=== PATIENT | male | born 1975 | race Caucasian/White ===

== ENCOUNTER 2018-05-30 02:18 | Outpatient (CLI) | payer MEDICAID, SELFPAY ==
[2018-05-30 08:09] LABS: Hemoglobin A1C 5.7 % (4.5-6.2)
[2018-05-30 08:28] LABS: ALT 16 U/L (12-78); AST 12 U/L (15-37); Albumin 3.9 g/dL (3.4-5.0); Alkaline Phosphatase 43 U/L (46-116); Anion Gap 9.5 mmol/L (3-11); BUN 10 mg/dL (7-18); Bilirubin, Total 0.2 mg/dL (0.2-1.0); CO2 26.5 mmol/L (21.0-32.0); CREATININE 1.19 mg/dL (0.70-1.30); Calcium 9.3 mg/dL (8.5-10.1); Chloride 104 mmol/L (98-107); Cholesterol 186 mg/dL (50-200); Glucose 109 mg/dL (70-100); HDL Cholesterol 32 mg/dL (40-60); LDL CHOLESTEROL 132 mg/dL (<100); Potassium 4.5 mmol/L (3.5-5.1); Sodium 140 mmol/L (136-145); Total Protein 6.8 g/dL (6.4-8.2); Triglyceride 153 mg/dL (30-150)
[2018-06-02 10:46] LABS: Hepatitis C Ab w Rflx HCV PCR Negative (NEGAT)
== END 2018-05-30 02:38 ==
PROVIDERS: PCP Nurse Practitioner Family; Visit Provider Nurse Practitioner Family
DX: Z87.898 Personal history of other specified conditions (principal); Z13.1 Encounter for screening for diabetes mellitus; E78.5 Hyperlipidemia, unspecified; R73.01 Impaired fasting glucose; Z11.59 Encounter for screening for other viral diseases
CPT/HCPCS: 36415; 80053; 80061; 83721; 86803; 83036

== ENCOUNTER 2018-09-26 00:27 | Outpatient (CLI) | payer MEDICAID, SELFPAY ==
--- NOTE | 2018-09-26 08:12 | DI.RAD_ITS ---
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 There are prominent hypertrophic degenerative changes of the acromioclavicular joint. Glenohumeral articulation appears intact. No additional bony or soft tissue abnormality is seen. RIGHT SHOULDER: Five views were obtained. There are moderate hypertrophic degenerative changes of the acromioclavicular joint. No abnormality of the glenohumeral articulation. No additional significant bony or soft tissue findings. LEFT HAND: Three views were obtained. No bony or soft tissue abnormality is seen.
== END 2018-09-26 00:47 ==
PROVIDERS: PCP Nurse Practitioner Family; Visit Provider Nurse Practitioner Family
DX: M25.512 Pain in left shoulder (principal); M25.511 Pain in right shoulder; M19.012 Primary osteoarthritis, left shoulder; M19.011 Primary osteoarthritis, right shoulder; M60.242 Foreign body granuloma of soft tissue, not elsewhere classified, left hand
CPT/HCPCS: 73030; 73130

== ENCOUNTER 2019-06-19 01:47 | Outpatient (CLI) | payer MEDICAID, SELFPAY ==
[2019-06-19 08:39] LABS: ALT 17 U/L (16-63); AST 14 U/L (15-37); Albumin 3.9 g/dL (3.4-5.0); Alkaline Phosphatase 41 U/L (46-116); Anion Gap 7.2 mmol/L (3-11); BUN 10 mg/dL (7-18); Bilirubin, Total 0.3 mg/dL (0.2-1.0); CO2 29.8 mmol/L (21.0-32.0); CREATININE 1.15 mg/dL (0.70-1.30); Calculated LDL 112 mg/dL; Chloride 105 mmol/L (98-107); Cholesterol 178 mg/dL (50-200); Glucose 101 mg/dL (70-100); HDL Cholesterol 28 mg/dL (40-60); Sodium 142 mmol/L (136-145); Total Protein 6.7 g/dL (6.4-8.2); Triglyceride 193 mg/dL (30-150)
== END 2019-06-19 02:07 ==
PROVIDERS: PCP Nurse Practitioner Family; Visit Provider Nurse Practitioner Family
DX: E78.5 Hyperlipidemia, unspecified (principal); R73.01 Impaired fasting glucose
CPT/HCPCS: 36415; 80053; 80061; 83036

== ENCOUNTER 2019-10-23 09:33 | Outpatient (REF) | payer MEDICAID, SELFPAY ==
[2019-10-23 13:21] LABS: Folate 11.9 ng/mL (8.6-20.0); TSH (W/Ref FT4) 2.12 uIU/mL (0.36-3.74); Vitamin B12 356 pg/mL (193-986)
== END 2019-10-23 09:53 ==
LOC: NCHCN 09:33
PROVIDERS: PCP Nurse Practitioner Family; Visit Provider Nurse Practitioner Family
DX: R41.3 Other amnesia (principal)
CPT/HCPCS: 82607; 82746; 84443

== ENCOUNTER 2019-11-03 13:12 | Outpatient (CLI) | payer MEDICAID, SELFPAY ==
--- NOTE | 2019-11-03 13:39 | DI.RAD_ITS ---
EXAM: XR THUMB LT EXAM DATE/TIME: CLINICAL HISTORY: LT THUMB PAIN, M79.645, FELL DOWN STAIRS, LIMITED RANGE OF MOTION. TECHNIQUE: 2D digital imaging was performed. COMPARISON: None. FINDINGS: BONES: No acute fracture is present. No bony destructive lesion is seen. 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 JOINTS: No dislocation present. SOFT TISSUE: Normal. IMPRESSION: No evidence of acute fracture, dislocation, or subluxation. DATA REPOSITORY: RADIATION DOSE DELIVERED:
== END 2019-11-03 13:32 ==
PROVIDERS: PCP Nurse Practitioner Family; Visit Provider Nurse Practitioner Family
DX: M79.645 Pain in left finger(s) (principal)
CPT/HCPCS: 73140

== ENCOUNTER 2019-12-16 11:56 | Outpatient (CLI) | payer MEDICAID, SELFPAY ==
--- NOTE | 2019-12-16 09:00 | DI.RAD_ITS ---
EXAM: XR THUMB LT CLINICAL HISTORY: pain TECHNIQUE: COMPARISON: CR XR THUMB LT from 11/03/2019 FINDINGS: Single AP view of the thumb which appears to be a stress view, there is ulnar subluxation of the prox imal phalanx 1st metacarpal and widening of radial aspect of the 1st metacarpal proximal phalangeal j oint. Findings are consistent with ligamentous laxity or tear. Please correlate clinically. IMPRESSION:
== END 2019-12-16 12:16 ==
PROVIDERS: PCP Nurse Practitioner Family; Visit Provider Orthopaedic Surgery
DX: S63.602A Unspecified sprain of left thumb, initial encounter (principal); S63.112A Subluxation of metacarpophalangeal joint of left thumb, initial encounter
CPT/HCPCS: 73140

== ENCOUNTER 2019-12-24 21:23 | Outpatient (REF) | payer MEDICAID, SELFPAY ==
[2019-12-24 16:20] LABS: Abs Immature Grans 0.02 k/cumm (0.0-0.09); Absolute Basophil Count 0.05 k/cumm (0.0-0.2); Absolute Eosinophil Count 0.31 k/cumm (0.0-0.7); Absolute Lymphocyte Count 2.56 k/cumm (1.2-3.4); Absolute Monocyte Count 0.65 k/cumm (0.11-0.7); Absolute Neutrophil Count 4.54 k/cumm (1.2-6.7); Basophils % 0.6; Eosinophils % 3.8; HCT 42.2 % (40.0-50.0); HGB 14.5 g/dL (13.5-17.5); Immature Grans % 0.2 %; Lymphocytes % 31.5; Mean Corp. HGB Concentration 34.4 g/dL (32.0-36.0); Mean Corpuscular Hemoglobin 28.7 pg (27.0-33.0); Mean Corpuscular Volume 83.4 fL (80-95); Mean Platelet Volume 10.3 fL (8.0-11.0); Neutrophils % 55.9; Platelet Count 318 x1000/uL (130-400); RBC 5.06 m/cumm (4.50-6.00); White Blood Cell Count 8.13 k/cumm (4.4-10.8)
[2019-12-24 16:55] LABS: Vitamin D 25 Total 14.8 ng/ml (30-100)
[2019-12-25 11:02] LABS: Syphilis Serology (RPR) Negative (Negative)
== END 2019-12-24 21:43 ==
LOC: NCHCN 21:23
PROVIDERS: PCP Nurse Practitioner Family; Visit Provider Nurse Practitioner Psychiatric/Mental Health
DX: R41.3 Other amnesia (principal)
CPT/HCPCS: 82306; 85025; 86592

== ENCOUNTER 2020-05-20 08:20 | Outpatient (CLI) | payer MEDICAID, SELFPAY ==
[2020-05-21 14:57] LABS: COVID-19 RT-PCR Result NEGATIVE (Negative)
== END 2020-05-20 08:40 ==
PROVIDERS: PCP Nurse Practitioner Family; Visit Provider Otolaryngology Otolaryngology/Facial Plastic Surgery
DX: Z11.59 Encounter for screening for other viral diseases (principal); Z01.818 Encounter for other preprocedural examination
CPT/HCPCS: U0003

== ENCOUNTER 2020-05-23 07:11 | Day surgery (SDC) | payer MEDICAID, SELFPAY ==
[2020-05-23 07:20] VITALS: BP 126/68; PULSE 53; RESP 18; TEMP 36.7; O2SAT 93
[2020-05-23] MEDS: Lactated Ringers 1,000 ML 80 ML IV ×2 (07:38→09:24)
--- NOTE | 2020-05-23 08:28 | W.PM.DSUDISC ---
Discharge Plan Disposition Patient Disposition: HOME Condition: Good Discharge Details Reason For Visit: or Attending Provider: Evaristo Kiran Primary Care Provider: Jann Jackman Home Meds and New Rx's Prescriptions: No Action triamcinolone acetonide 0.5 % cream 1 applic TP .BID-QID Qty: 15 RF: 3 clonazepam 0.5 mg tablet 0.5 mg PO PRN RF: 0 ibuprofen 200 MG capsule 4 tab PO TID PRNRF: 0 albuterol sulfate [ProAir HFA] 8.5 GM HFA aerosol inhaler 1 - 2 puff Inhalation Q6H PRN Qty: 1 RF: 3 gabapentin 300 MG capsule 300 mg PO HS RF: 0 mirtazapine 30 MG tablet 30 mg PO HS RF: 0 budesonide-formoterol [Symbicort] 10.2 GM HFA aerosol inhaler 2 puff Inhalation BID Qty: 3 RF: 3 lidocaine [LC-5] 45 GM cream 1 film Topical 2-4 times daily PRN Qty: 1 RF: 3 hydroxyzine HCl 25 mg Tablet 25 mg PO QHS PRNRF: 0 Discharge Instructions Additional Instructions: see sheet Activity:: Activity as Tolerated Diet:: As Tolerated
--- NOTE | 2020-05-23 08:30 | W.PM.OP ---
Operative Note Operative Note DATE OF PROCEDURE: 05/23/20 PRE-OP DIAGNOSIS: Right tonsillar neoplasm, chronic tobacco usage POST-OP DIAGNOSIS: same PROCEDURE: Right tonsil mass excision SURGEON: Evaristo Kiran ANESTHESIA: GETA ESTIMATED BLOOD LOSS: 0.5 PATHOLOGY: other (R tonsil mass ) COMPLICATIONS: None Patient was transported to: PACU Patient's condition: stable Indications: Chronic smoker, persistent right tonsil mass, due to anxiety and gag reflex opted to proceed with excision intraoperatively. Patient was given options preoperatively, has deferred bilateral tonsillectomy, would prefer just to have the lesion itself out if we can preserve even the right tonsil. He is anxious today, preoperatively at the hospital does have a mild anxiety attack, anesthesia is controlling. Procedure Description: Patient was brought back to the operating suite in stable condition placed supine on the operating table. Intubated in normal fashion. The oral McIvor retractor was placed in the oral cavity suspended from Callahan stand. Red rubber catheter was used to elevate the soft palate. Obvious right tonsillar lesion identified.Chana Aiden retractor was placed in the lower cavity suspended from Callahan stand. Right superior tonsillar mass was grasped with a DeBakey forceps, removed with suction cautery, controlled hemostasis. Gastric contents suctioned, patient stable to PACU, no complications
[2020-05-23] MEDS: Oxymetazolone 0.05% SPRAY 15 ML BTL (09:00)
--- NOTE | 2020-05-23 09:10 | TONSIL_PTH ---
PATIENT: Keegan Hale LOC: [facility] U#:[id number] AGE/SX: 45/M ROOM: RE05/23/[address]: Evaristo Kiran DO : 1975 BED: DIS: 05/23/2020 SPEC #: [id number] RECD: 05/23/20 12:46 STATUS: MICH REQ #: [id number] AMARILIS: 05/23/20 09:[address]: Evaristo Kiran DEPT: Surgical Specimen RECD BY: Patrica Molina ENTERED: 05/23/20 12:47 SP TYPE: TONSIL OTHR DR: Jann Jackman Tissues: 1 - TONSIL BIOPSY Procedures: GROSS AND MICRO LEVEL 4 IMMUNOPEROXIDASE STAIN Comments: [id number]
[2020-05-23 09:17] VITALS: BP 140/74; PULSE 67; RESP 15; TEMP 36.5; O2SAT 93
[2020-05-23 09:22] VITALS: BP 139/78; PULSE 77; RESP 13; TEMP 36.5; O2SAT 95
[2020-05-23 09:27] VITALS: BP 145/87; PULSE 64; RESP 15; TEMP 36.6; O2SAT 96
[2020-05-23 10:15] VITALS: BP 120/75; PULSE 54; RESP 18; TEMP 36.7; O2SAT 96
== END 2020-05-23 10:30 | disposition home or self-care (01) ==
PROVIDERS: PCP Nurse Practitioner Family; Visit Provider Otolaryngology Otolaryngology/Facial Plastic Surgery
PROC: (CPT 42826; principal; 2020-05-23 08:45)
DX: J35.1 Hypertrophy of tonsils (principal)
CPT/HCPCS: 42826; 88305; 88361; J1100; J2250; J2405; J2704

== ENCOUNTER 2020-06-27 12:29 | Outpatient (REF) | payer MEDICAID, SELFPAY ==
[2020-06-27 20:28] LABS: HCT 43.6 % (40.0-50.0); HGB 14.6 g/dL (13.5-17.5); MCH 27.7 pg (27.0-33.0); MCHC 33.5 % (32.0-36.0); MCV 82.6 fL (80-95); MPV 10.6 fL (8.0-11.0); Platelet Count 311 10^3/uL (130-400); RBC 5.28 10^6/uL (4.36-5.78); RDW 12.2 % (11.8-14.1); WBC 11.21 10^3/uL (4.4-10.8)
[2020-06-27 20:34] LABS: ALT 17 U/L (16-63); AST 15 U/L (15-37); Albumin 4.4 g/dL (3.4-5.0); Alkaline Phosphatase 44 U/L (46-116); Anion Gap 10.1 mmol/L (3-11); BUN 9 mg/dL (7-18); Bilirubin, Total 0.3 mg/dL (0.2-1.0); CO2 26.9 mmol/L (21.0-32.0); CREATININE 1.18 mg/dL (0.70-1.30); Calcium 9.2 mg/dL (8.5-10.1); Calculated LDL 119 mg/dL (<100); Chloride 102 mmol/L (98-107); Cholesterol 228 mg/dL (<200); Glucose 103 mg/dL (74-106); HDL Cholesterol 29 mg/dL (40-60); Potassium 4.3 mmol/L (3.5-5.1); Sodium 139 mmol/L (136-145); Total Protein 7.4 g/dL (6.4-8.2); Triglyceride 400 mg/dL (<150)
[2020-06-27 21:27] LABS: Vitamin D 25 Total 18.6 ng/ml (30-100)
== END 2020-06-27 12:49 ==
LOC: NCHCN 12:29
PROVIDERS: PCP Nurse Practitioner Family; Visit Provider Nurse Practitioner Family
DX: F10.11 Alcohol abuse, in remission (principal); E78.5 Hyperlipidemia, unspecified; E55.9 Vitamin D deficiency, unspecified
CPT/HCPCS: 80053; 80061; 82306; 85027

== ENCOUNTER 2020-08-25 19:31 | Outpatient (CLI) | payer MEDICAID, SELFPAY ==
--- NOTE | 2020-08-25 13:08 | DI.RAD_ITS ---
EXAM: XR WRIST RT COMPLETE CLINICAL HISTORY: PAIN RT WRIST M25.531, POST TRAUMA. TECHNIQUE: 2D digital imaging was performed. COMPARISON: CT HEAD WITHOUT CONTRAST from 04/03/2010 ECG EKG from 04/04/2010 CR XR THUMB LT from 12/16/2019 FINDINGS: BONES: No acute fracture is present. No bony destructive lesion is seen. There is deformity of the ri ght 5th metacarpal consistent with old injury. JOINTS: The carpal bones are normally aligned. SOFT TISSUE: Normal. IMPRESSION: No acute fracture. DATA REPOSITORY: RADIATION DOSE DELIVERED:
== END 2020-08-25 19:51 ==
PROVIDERS: PCP Nurse Practitioner Family; Visit Provider Nurse Practitioner Family
DX: M25.531 Pain in right wrist (principal)
CPT/HCPCS: 73110

== ENCOUNTER 2022-03-29 16:48 | Outpatient (REF) | payer MEDICAID, SELFPAY ==
[2022-03-29 16:35] LABS: Hemoglobin A1C 6.1 % (<5.7)
[2022-03-29 16:36] LABS: ALT 25 U/L (16-63); AST 22 U/L (15-37); Albumin 4.1 g/dL (3.4-5.0); Alkaline Phosphatase 42 U/L (46-116); Anion Gap 11.6 mmol/L (3-11); BUN 15 mg/dL (7-18); Bilirubin, Total 0.3 mg/dL (0.2-1.0); CO2 25.4 mmol/L (21.0-32.0); CREATININE 1.1 mg/dL (0.70-1.30); Calcium 8.9 mg/dL (8.5-10.1); Calculated LDL 61 mg/dL (<100); Chloride 105 mmol/L (98-107); Cholesterol 144 mg/dL (<200); Glucose 111 mg/dL (74-106); HDL Cholesterol 32 mg/dL (40-60); Sodium 142 mmol/L (136-145); Total Protein 7.5 g/dL (6.4-8.2); Triglyceride 255 mg/dL (<150)
== END 2022-03-29 16:49 | disposition home or self-care (01) ==
LOC: NCHCN 16:48
PROVIDERS: PCP Nurse Practitioner Family; Visit Provider Physician Assistant
DX: E78.5 Hyperlipidemia, unspecified (principal); R73.03 Prediabetes
CPT/HCPCS: 80053; 80061; 83036

== ENCOUNTER 2023-04-05 12:49 | Outpatient (REF) | payer MEDICAID, SELFPAY ==
[2023-04-05 13:26] LABS: ALT 24 U/L (16-63); Albumin 4.1 g/dL (3.4-5.0); Alkaline Phosphatase 53 U/L (46-116); Anion Gap 6.7 mmol/L (3-11); BUN 16 mg/dL (7-18); Bilirubin, Total 0.3 mg/dL (0.2-1.0); CO2 27.3 mmol/L (21.0-32.0); CREATININE 1.2 mg/dL (0.70-1.30); Calcium 9.3 mg/dL (8.5-10.1); Chloride 105 mmol/L (98-107); Cholesterol 182 mg/dL (<200); Estimated GFR 75.06 (mL/min/1.73m2); Glucose 124 mg/dL (74-106); HDL Cholesterol 28 mg/dL (40-60); Potassium 4.3 mmol/L (3.5-5.1); Sodium 139 mmol/L (136-145); Triglyceride 756 mg/dL (<150)
[2023-04-05 13:29] LABS: Hemoglobin A1C 5.9 % (<5.7)
[2023-04-05 13:40] LABS: AST 8 U/L (15-37)
[2023-04-05 13:42] LABS: LDL CHOLESTEROL 78 mg/dL (<100)
== END 2023-04-05 12:50 | disposition home or self-care (01) ==
LOC: NCHCN 12:49
PROVIDERS: PCP Physician Assistant; Visit Provider Physician Assistant
DX: R73.03 Prediabetes (principal); E78.5 Hyperlipidemia, unspecified
CPT/HCPCS: 80053; 80061; 83721; 83036

== ENCOUNTER 2023-10-11 15:07 | Outpatient (REF) | payer MEDICAID, SELFPAY ==
[2023-10-11 16:08] LABS: Calculated LDL 26 mg/dL (<100); Cholesterol 120 mg/dL (<200); HDL Cholesterol 31 mg/dL (40-60); Triglyceride 315 mg/dL (<150)
[2023-10-11 16:25] LABS: Hemoglobin A1C 5.9 % (<5.7)
== END 2023-10-11 15:08 | disposition home or self-care (01) ==
LOC: NCHCN 15:07
PROVIDERS: PCP Physician Assistant; Referring Provider Physician Assistant; Visit Provider Physician Assistant
DX: E78.5 Hyperlipidemia, unspecified (principal); R73.03 Prediabetes
CPT/HCPCS: 80061; 83036

== ENCOUNTER 2024-04-21 02:40 | Outpatient (CLI) | payer MEDICAID, SELFPAY ==
[2024-04-21 12:34] LABS: ALT 19 U/L (16-63); AST 11 U/L (15-37); Alkaline Phosphatase 51 U/L (46-116); Anion Gap 7.8 mmol/L (3-11); BUN 17 mg/dL (7-18); Bilirubin, Total 0.31 mg/dL (0.2-1.0); CO2 27.2 mmol/L (21.0-32.0); CREATININE 1.3 mg/dL (0.70-1.30); Calcium 8.9 mg/dL (8.5-10.1); Chloride 105 mmol/L (98-107); Estimated GFR 67.76 (mL/min/1.73m2); Glucose 113 mg/dL (74-106); Potassium 3.8 mmol/L (3.5-5.1); Sodium 140 mmol/L (136-145)
== END 2024-04-21 02:41 | disposition home or self-care (01) ==
PROVIDERS: PCP Physician Assistant; Visit Provider Physician Assistant
DX: E78.5 Hyperlipidemia, unspecified (principal)
CPT/HCPCS: 36415; 80053

== ENCOUNTER 2024-06-24 06:57 | Day surgery (SDC) | payer MEDICAID, SELFPAY ==
[2024-06-24 07:00] VITALS: BP 142/79; PULSE 63; RESP 18; TEMP 36.6; O2SAT 97
[2024-06-24] MEDS: Normal Saline Flush 10 ML SYR IV (07:21)
--- NOTE | 2024-06-24 08:00 | W.ANESPRE ---
General Info Date of Service Date Performed: 06/24/24 Height: 5 ft 6 in Weight: 88.8 kg Body Mass Index (BMI): 31.6 Surgical Procedure: Operation Date: 06/24/24 08:05 Proposed Procedure Side Surgeon shauna Machuca MD Meds Allergies and Home Medications Allergies Allergy/AdvReac Type Severity Reaction Status Date / Time cats Allergy Severe breathing Uncoded 06/24/24 07:15 problems hay Allergy Intermediate Wheezing Uncoded 06/24/24 07:15 Home Medication ?Medication ?Instructions ?Recorded ibuprofen 200 mg capsule 4 tab PO TID PRN 11/20/12 albuterol sulfate 90 mcg/actuation 1 - 2 puff inhalation Q6H PRN ##1 03/30/16 aerosol inhaler (ProAir HFA) gabapentin 300 mg capsule 300 mg PO HS 05/07/17 mirtazapine 30 mg tablet 30 mg PO HS 08/16/17 budesonide-formoterol HFA 80 2 puff inhalation BID ##3 10/22/17 mcg-4.5 mcg/actuation aerosol inhaler (Symbicort) clonazepam 0.5 mg tablet 0.25 mg PO PRN 10/22/18 hydroxyzine HCl 25 mg tablet 25 mg PO QHS PRN 05/19/20 atorvastatin 40 mg tablet 40 mg PO DAILY 05/25/24 Current Visit Medications: Current Medications Generic Name Dose Route Start Last Admin Trade Name Freq PRN Reason Stop Dose Admin IV Miscellaneous Supplies 1 each 06/24/24 06:00 Iv Access IV 07/23/24 23:59 DIRECTED PINKY Sodium Chloride 0 ml 06/24/24 06:00 06/24/24 07:21 Normal Saline Flush 10 Ml Syr IV 07/23/24 23:59 10 ml PRN PRN Administration Sodium Chloride 0 ml 06/24/24 06:00 Normal Saline 10 Ml Vial IJ 07/23/24 23:59 DIRECTED PRN Sterile Water 0 ml 06/24/24 06:00 Water,Injection,Sterile 10 Ml Vial IJ 07/23/24 23:59 DIRECTED PRN PFSH Active Problems Active Problems: Problem Status Onset Code Onychomycosis Acute B35.1 Tobacco use disorder Chronic F17.200 Partner relationship problem Acute Z63.0 Right rotator cuff tendinitis Acute M75.81 Tendinitis of left rotator cuff Acute M75.82 Lesion of tonsil Acute J35.9 Left thumb sprain Acute S63.602A Tinnitus Chronic 03/04/17 H93.19 Sensorineural hearing loss, bilateral Chronic 03/04/17 H90.3 Psoriasis Chronic 11/20/12 L40.9 Panic disorder Chronic 05/07/17 F41.0 Mild persistent asthma without complication Chronic 10/04/17 J45.30 Mild obstructive sleep apnea Chronic G47.33 Lumbar spine scoliosis Chronic 11/20/12 M41.9 Pain, joint, upper arm Chronic 04/28/13 M25.529 IFG (impaired fasting glucose) Chronic 01/04/17 R73.01 Hyperlipidemia Chronic 12/30/15 E78.5 Environmental allergies Chronic Z91.09 Depression Chronic 10/15/16 F32.9 Attention-deficit hyperactivity disorder, unspecified type Chronic F90.9 Anxiety Chronic 12/15/12 F41.9 Medical History Medical History Tobacco use disorder IFG (impaired fasting glucose) HLD (hyperlipidemia) ETOH abuse BRYAN (obstructive sleep apnea) Oral appliance Surgical History Surgical History History of dental surgery 4 front teeth, implants. Tobacco Smoking/Tobacco Use Status: Current every day Tobacco Type: cigarettes Alcohol Alcohol Intake: former Year quit: 2012 Substance Use Substance use: Never Substance use type: does not use Vital Signs and Lab Results Vital Signs Most Recent Vital Signs in EMR: Most Recent Vital Signs Temp Pulse Resp BP Pulse Ox 36.6 C 63 18 142/79 H 97 06/24/24 07:00 06/24/24 07:00 06/24/24 07:00 06/24/24 07:00 06/24/24 07:00 Lab Results Blood Type / Crossmatch: No Data to Display Complete Blood Count: No Data to Display Complete Metabolic Panel: No Data to Display Liver Function Panel: No Data to Display Coagulation Panel: No Data to Display Cardiac Panel: No Data to Display Arterial Blood Gas: No Data to Display Venous Blood Gas: No Data to Display Pancreas Panel: No Data to Display Thyroid Panel: No Data to Display Infectious Disease: No Data to Display Blood Cultures: No Data to Display Toxicology Panel: No Data to Display Anesthesia Assessment and Plan Anesthesia History Personal History: No History of Anesthesia Complications Family History: No Family History of Anesthesia Complications Exercise Tolerance Exercise Tolerance: Metabolic Equivalents>4 Pertinent Negatives Pertinent Negatives: No Major Cardiovascular Symptoms or Complaints and No Major Pulmonary Symptoms or Complaints Cardiac & Pulmonary Exam Cardiac Exam: Normal S1/S2 Heart Sounds Pulmonary Exam: Clear Bilateral Breath Sounds Implantable Cardiac Device Does patient have a Pacemaker or an ICD?: No Airway Exam Known Difficult Airway: No Mallampati Class: 3 Mouth Opening: Normal (> 3cm) Thyromental Distance: Greater than 3 cm Neck Range of Motion: Full ROM Neck Circumference: Normal Teeth Condition: Normal Dentition ASA Classification ASA Score: ASA 2 Emergency Case?: No NPO Status NPO Status: NPO Clears >2 hours, Solids >8 hours Anesthesia Plan Resuscitation Status: Full Code Anesthesia Technique: General Anesthesia Airway Planned: Natural Airway Monitors Used: Standard Monitors Preoperative Comments:: Used inhalers this am, COVID over a month ago.
--- NOTE | 2024-06-24 08:06 | PDOC.DSDIS_ITS ---
Date of service: 06/24/24 Time of Service: 08:06 Discharge Plan Disposition Patient Disposition: Home Condition: Good Discharge Details Attending Provider: Duncan Machuca Primary Care Provider: Evaristo Espinal Home Meds and New Rx's Prescriptions: No Action clonazepam 0.5 mg tablet 0.25 mg PO PRN atorvastatin 40 mg tablet 40 mg PO DAILY ibuprofen 200 MG capsule 4 tab PO TID PRN albuterol sulfate [ProAir HFA] 8.5 GM HFA aerosol inhaler 1 - 2 puff Inhalation Q6H PRN Qty: 1 gabapentin 300 MG capsule 300 mg PO HS Patient Comments: 05/07/17 prescriber Shelli Ferguson APRN ([facility] Rx Instructions: [facility] mirtazapine 30 MG tablet 30 mg PO HS Rx Instructions: Shelli Ferguson APRN budesonide-formoterol [Symbicort] 10.2 GM HFA aerosol inhaler 2 puff Inhalation BID Qty: 3 3RF hydroxyzine HCl 25 mg Tablet 25 mg PO QHS PRN Discharge Instructions Additional Instructions: FINDINGS: Some small polyps were found and removed today. They are nothing to worry about. This is why we do the colonoscopies. Depending on the type of polyps they are you may need to do a colonoscopy sooner but probably you should repeat in 7 to 10 years. Some very mild hemorrhoid and diverticular disease was seen today. These are benign, common conditions and nothing needs to be done about them. Activity:: Activity as Tolerated Diet:: As Tolerated
--- NOTE | 2024-06-24 08:06 | W.COLOREPORT ---
Date of service: 06/24/24 Time of Service: 08:06 Colonoscopy Report Procedure Description: PROCEDURES PERFORMED: 1. Colonoscopy with cold forceps polypectomy x2 PREOPERATIVE DIAGNOSIS: screening colonoscopy POSTOPERATIVE DIAGNOSIS: Rectal polyps, mild/minimal sigmoid diverticulosis, grade 1 internal hemorrhoids SURGEON: Tiarra Machuca MD INDICATION for procedure: The patient is a 49-year-old man due for his for screening colonoscopy. He has no symptoms. He thinks his grandfather may have had colon cancer. He is not sure. FINDINGS: Normal terminal ileum. There are mild diverticular changes present in the sigmoid colon. 2 small 2-3 mm benign?appearing polyps were removed from the rectum separately with cold forceps technique. There are grade 1?2 internal hemorrhoids at all 3 columns. SURVEILLANCE interval/FOLLOW-UP: Pending path results. 3 - 10 years. If sessile serrated or villous histology, then in 3 years. Otherwise, 7-10 year followup is acceptable. SPECIMENS: yes EBL: Minimal COMPLICATIONS: None QUALITY of prep: Excellent Procedure in detail: The patient gave written consent and was in agreement with the indications, the potential risks as well as the benefits of the procedure. They were taken to the endoscopy suite and laid in the left lateral decubitus position. A timeout was performed and anesthesia was administered which was tolerated well. I started the procedure. Digital rectal and visual examination was performed and grossly within normal limits. A well-lubricated flexible colonoscope was then introduced and passed without any notable difficulty all the way to the cecum identified by the ileocecal valve and the appendiceal orifice. Terminal ileum was intubated and normal. The scope was then slowly withdrawn with the above-noted findings. The patient tolerated the procedure well and was taken to the PACU in hemodynamically stable condition.
[2024-06-24 08:07] VITALS: BMI 31.6
--- NOTE | 2024-06-24 08:26 | BOWEL_PTH ---
PATIENT: Keegan Hale LOC: [facility] U#:[id number] AGE/SX: 49/M ROOM: RE06/24/[address]: Duncan Machuca : 1975 BED: DIS: 06/24/2024 SPEC #: [id number] RECD: 06/24/24 12:58 STATUS: MICH RE #: [id number] AMARILIS: 06/24/24 08:[address]: Duncan Machuca DEPT: Surgical Specimen RECD BY: Patrica Molina ENTERED: 06/24/24 12:58 SP TYPE: Bowel OTHR DR: Evaristo Espinal Tissues: 1 - BIOPSY BOWEL 2 - BIOPSY BOWEL Procedures: GROSS AND MICRO LEVEL 4 Comments: [id number]
[2024-06-24 08:32] VITALS: BP 111/91; PULSE 66; RESP 18; TEMP 36.7; O2SAT 97
[2024-06-24 09:00] VITALS: BP 113/70; PULSE 58; RESP 16; TEMP 36.1; O2SAT 98
--- NOTE | 2024-06-24 09:02 | W.ANESPOSTOP ---
Postoperative Evaluation Date, Time and Location Date Performed: 06/24/24 Time Performed: 08:33 Patient Location: Day Surgery Unit Vital Signs Most Recent Imported Vital Signs: Most Recent Vital Signs Temp Pulse Resp BP Pulse Ox 36.7 C 66 18 111/91 H 97 06/24/24 08:32 06/24/24 08:32 06/24/24 08:32 06/24/24 08:32 06/24/24 08:32 Pain Score Most Recent Pain Score: Most Recent Pain Score Pain Level 0 06/24/24 08:32 Assessment Mental Status: Awake (Alert & Oriented to Patient Baseline) Airway and Respiratory Function: Patent airway with normal (patient baseline) respiratory exam Cardiovascular Function: Hemodynamically Stable Hydration Status: Adequately Hydrated Nausea & Vomiting: No Nausea or Vomiting Pain: Pt. Denies Any Pain Peripheral Nerve Block: Patient did not receive a nerve block
== END 2024-06-24 09:32 | disposition home or self-care (01) ==
PROVIDERS: PCP Physician Assistant; Visit Provider Student in an Organized Health Care Education/Training Program
PROC: 0DJD8ZZ Inspection of Lower Intestinal Tract, Via Natural or Artificial Opening Endoscopic (ICD-10-PCS; CPT 45378; principal; 2024-06-24 08:00)
DX: Z12.11 Encounter for screening for malignant neoplasm of colon (principal); K62.1 Rectal polyp; K64.0 First degree hemorrhoids; K57.30 Diverticulosis of large intestine without perforation or abscess without bleeding; Z80.0 Family history of malignant neoplasm of digestive organs
CPT/HCPCS: 45380; 00123; 88305; J2704

== ENCOUNTER 2024-11-09 15:03 | Outpatient (REF) | payer MEDICAID, SELFPAY ==
[2024-11-09 21:40] LABS: Hemoglobin A1C 6.1 % (<5.7)
[2024-11-09 21:53] LABS: ALT 22 U/L (16-63); AST 16 U/L (15-37); Albumin 4.3 g/dL (3.4-5.0); Alkaline Phosphatase 53 U/L (46-116); Anion Gap 10.2 mmol/L (3-11); BUN 11 mg/dL (7-18); Bilirubin, Total 0.3 mg/dL (0.2-1.0); CO2 25.8 mmol/L (21.0-32.0); CREATININE 1.1 mg/dL (0.70-1.30); Calcium 9.8 mg/dL (8.5-10.1); Calculated LDL 52 mg/dL (<100); Chloride 105 mmol/L (98-107); Cholesterol 104 mg/dL (<200); Estimated GFR 82.29 (mL/min/1.73m2); Glucose 105 mg/dL (74-106); HDL Cholesterol 37 mg/dL (>or=40); Potassium 4.2 mmol/L (3.5-5.1); Sodium 141 mmol/L (136-145); Total Protein 7.2 g/dL (6.4-8.2); Triglyceride 75 mg/dL (<150)
== END 2024-11-09 15:04 | disposition home or self-care (01) ==
LOC: NCHCN 15:03
PROVIDERS: PCP Physician Assistant; Visit Provider Physician Assistant
DX: E78.5 Hyperlipidemia, unspecified (principal)
CPT/HCPCS: 80053; 80061; 83036